=== PATIENT | male | born 1980 | race Caucasian/White ===

== ENCOUNTER 2018-04-25 13:11 | Emergency (ER) | payer BC ==
[~2018-04-25] VITALS: Ht 180.3 cm; Wt 101.6 kg
[~2018-04-25 13:11] MED LIST: AZIT250 PO; CEPH500 PO; CLIN300 PO; CODACE30 PO; CYCL10 PO; DIAZ5 PO; DIPH25 PO; HYDACE25S PR; HYDACE5 PO; IBUP200; IBUP600 PO; IBUP800 PO; LEVFLO500 PO; MECL25 PO; MELO7.5 PO; NAPR500 PO; OXYACE5T PO; OXYACE7.5T PO; PROACE100 PO; RXHYDACE PO; RXNAPNA550 PO; RXOXYACE PO; RXPRED10 PO; ZOLP5; Zofran Odt4 MG SL
== END 2018-04-25 14:10 | disposition home or self-care (01) ==
LOC: ER 13:11
DX: S01.81XA Laceration without foreign body of other part of head, initial encounter (principal); Z88.0 Allergy status to penicillin; Z88.1 Allergy status to other antibiotic agents; W22.8XXA Striking against or struck by other objects, initial encounter
CPT/HCPCS: 12014; 99283-25

== ENCOUNTER 2019-11-17 20:57 | Emergency (ER) | payer SELFPAY ==
[~2019-11-17] VITALS: Ht 180.3 cm; Wt 106.1 kg
== END 2019-11-17 21:47 | disposition left against medical advice (07) ==
LOC: ER 20:57
DX: Z53.21 Procedure and treatment not carried out due to patient leaving prior to being seen by health care provider (principal)

== ENCOUNTER 2019-12-27 20:45 | Emergency (ER) | payer SELFPAY ==
[~2019-12-27] VITALS: Ht 180.3 cm; Wt 108.9 kg
== END 2019-12-27 21:03 | disposition home or self-care (01) ==
LOC: ER 20:45
DX: J32.9 Chronic sinusitis, unspecified (principal); Z88.0 Allergy status to penicillin
CPT/HCPCS: 99282

== ENCOUNTER 2021-02-01 13:04 | Emergency (ER) | payer BC ==
[~2021-02-01] VITALS: Ht 180.3 cm; Wt 107.0 kg
[~2021-02-01 13:04] MED LIST changes: -DEXA4 PO
[2021-02-01 13:54] LABS: BASOPHILS ABSOLUTE AUTO 0.08 K/mm3 (0.00-0.23); BASOPHILS PERCENT AUTO 1 % (0-2); EOSINOPHILS ABSOLUTE AUTO 0.13 K/mm3 (0.00-0.68); EOSINOPHILS PERCENT AUTO 2 % (0-6); Hematocrit 46.3 % (37.0-53.0); Hemoglobin 15.9 g/dL (13.5-17.5); IMMATURE GRAN ABSOLUTE AUTO 0.03 K/mm3 (0.00-0.10); IMMATURE GRAN PERCENT AUTO 1 % (0-1); LYMPHOCYTES PERCENT AUTO 24 % (21-46); MONOCYTES ABSOLUTE AUTO 0.65 K/mm3 (0.16-1.47); MONOCYTES PERCENT AUTO 11 % (4-13); Mean Corpuscular HGB 28.7 pg (26.0-34.0); Mean Corpuscular HGB Conc 34.3 g/dL (31.5-36.5); Mean Corpuscular Volume 84 fL (80-100); NEUTROPHILS ABSOLUTE AUTO 3.54 K/mm3 (1.96-9.15); NEUTROPHILS PERCENT AUTO 61 % (41-73); NRBC ABSOLUTE 0.02 K/mm3 (0.00-0.02); NRBC Auto 0.3 /100 WBC (0.0-0.2); RDW Coefficient Variation 12.2 % (11.7-14.2); RDW Standard Deviation 37.2 fL (35.1-46.3); Red Blood Cell Count 5.54 M/mm3 (4.30-5.90); White Blood Cell Count 5.83 K/mm3 (4.00-11.30)
[2021-02-01 14:02] LABS: Platelet Count 1 K/mm3 (150-400)
[2021-02-01 14:07] LABS: International Normalized Ratio 0.96; Prothrombin Time Results 10.3 Sec (9.7-11.5)
[2021-02-01 14:19] LABS: Alanine Aminotransfer (ALT/SGP 59 U/L (12-78); Albumin, Blood 3.5 g/dL (3.4-5.0); Albumin/Globulin Ratio 0.9 (0.8-1.8); Alk Phos 104 U/L (50-136); Anion Gap 4 mmol/L (6-16); Aspartate Aminotrans (AST/SGOT 31 U/L (12-37); Bilirubin, Total 0.5 mg/dL (0.1-1.0); Blood Urea Nitrogen 15 mg/dL (8-24); Bun/Creatinine Ratio 15.6 (12.0-20.0); CO2, Blood 27 mmol/L (21-32); Calcium, Blood 8.6 mg/dL (8.5-10.1); Chloride, Blood 110 mmol/L (98-108); Creatinine, Blood 0.96 mg/dL (0.60-1.20); Globulin, Blood 3.9 g/dL (2.2-4.0); Glomerular Filtration Rate >60 (60-); Glucose, Blood 87 mg/dL (70-99); Potassium, Blood 3.9 mmol/L (3.5-5.5); Sodium, Blood 141 mmol/L (136-145); Total Protein, Blood 7.4 g/dL (6.4-8.2)
[2021-02-01 16:18] LABS: Hematocrit 43.5 % (37.0-53.0); Hemoglobin 14.8 g/dL (13.5-17.5); Mean Corpuscular HGB 28.8 pg (26.0-34.0); Mean Corpuscular Volume 85 fL (80-100); Mean Platelet Volume 9.9 fL (9.1-12.4); RDW Coefficient Variation 12.3 % (11.7-14.2); RDW Standard Deviation 37.7 fL (35.1-46.3); Red Blood Cell Count 5.13 M/mm3 (4.30-5.90); White Blood Cell Count 6.56 K/mm3 (4.00-11.30)
[2021-02-01 16:39] LABS: Platelet Count 18 K/mm3 (150-400)
[2021-02-01 17:26] LABS: BAND PERCENT MAN 1 % (0-8); BASOPHILS PERCENT MAN 0 % (0-2); EOSINOPHILS PERCENT MAN 0 % (0-6); LYMPHOCYTES ABSOLUTE MAN 1.18 K/mm3 (0.84-5.20); LYMPHOCYTES PERCENT MAN 18 % (21-46); MONOCYTES ABSOLUTE MAN 0.26 K/mm3 (0.16-1.47); MONOCYTES PERCENT MAN 4 % (4-13); NEUTROPHILS ABSOLUTE MAN 5.11 K/mm3 (1.96-9.15); SEG NEUTROPHILS PERCENT MAN 77 % (41-73); TOTAL CELLS COUNTED 100
[2021-02-01] MEDS ORDERED: DEXA4 PO (17:31)
== END 2021-02-01 17:02 | disposition home or self-care (01) ==
LOC: ER 13:04
PROVIDERS: Emergency Medicine
DX: D69.6 Thrombocytopenia, unspecified (principal); Z88.0 Allergy status to penicillin; Z88.1 Allergy status to other antibiotic agents
CPT/HCPCS: 36415; 36430; 80053; 85007; 85025; 85027; 85610; 86900; 86901; 96374; 99283-25; J1100; P9035

== ENCOUNTER → 2021-02-01 | Outpatient (CLI) | payer BC ==
[~2021-02-01] MED LIST changes: +DEXA4 PO
[2021-02-01 11:50] LABS: BASOPHILS ABSOLUTE AUTO 0.06 K/mm3 (0.00-0.23); BASOPHILS PERCENT AUTO 1 % (0-2); EOSINOPHILS ABSOLUTE AUTO 0.11 K/mm3 (0.00-0.68); EOSINOPHILS PERCENT AUTO 2 % (0-6); Hematocrit 49.1 % (37.0-53.0); Hemoglobin 16.3 g/dL (13.5-17.5); IMMATURE GRAN ABSOLUTE AUTO 0.02 K/mm3 (0.00-0.10); IMMATURE GRAN PERCENT AUTO 0 % (0-1); LYMPHOCYTES ABSOLUTE AUTO 1.31 K/mm3 (0.84-5.20); LYMPHOCYTES PERCENT AUTO 24 % (21-46); MONOCYTES ABSOLUTE AUTO 0.65 K/mm3 (0.16-1.47); MONOCYTES PERCENT AUTO 12 % (4-13); Mean Corpuscular HGB 28.2 pg (26.0-34.0); Mean Corpuscular HGB Conc 33.2 g/dL (31.5-36.5); Mean Corpuscular Volume 85 fL (80-100); NEUTROPHILS ABSOLUTE AUTO 3.35 K/mm3 (1.96-9.15); NEUTROPHILS PERCENT AUTO 61 % (41-73); RDW Coefficient Variation 12.2 % (11.7-14.2); RDW Standard Deviation 37.5 fL (35.1-46.3); Red Blood Cell Count 5.79 M/mm3 (4.30-5.90)
[2021-02-01 12:06] LABS: Alanine Aminotransfer (ALT/SGP 60 U/L (12-78); Albumin, Blood 3.7 g/dL (3.4-5.0); Albumin/Globulin Ratio 0.9 (0.8-1.8); Alk Phos 109 U/L (50-136); Anion Gap 2 mmol/L (6-16); Aspartate Aminotrans (AST/SGOT 29 U/L (12-37); Bilirubin, Total 0.6 mg/dL (0.1-1.0); Blood Urea Nitrogen 15 mg/dL (8-24); Bun/Creatinine Ratio 15.8 (12.0-20.0); CO2, Blood 30 mmol/L (21-32); Calcium, Blood 8.7 mg/dL (8.5-10.1); Chloride, Blood 108 mmol/L (98-108); Creatinine, Blood 0.95 mg/dL (0.60-1.20); Glomerular Filtration Rate >60 (60-); Glucose, Blood 89 mg/dL (70-99); Potassium, Blood 4.9 mmol/L (3.5-5.5); Sodium, Blood 140 mmol/L (136-145); Total Protein, Blood 7.7 g/dL (6.4-8.2)
[2021-02-01 12:32] LABS: Platelet Count 1 K/mm3 (150-400)
== END ==
LOC: LAB 10:50 → LAB SHORT 10:50
PROVIDERS: Physician Assistant
DX: R53.83 Other fatigue (principal); R21 Rash and other nonspecific skin eruption
CPT/HCPCS: 80053; 85025; 85651

== ENCOUNTER 2025-04-20 10:22 | Emergency (ER) | payer BC ==
[~2025-04-20] VITALS: Ht 177.8 cm; Wt 111.1 kg
[~2025-04-20 10:22] MED LIST changes: +DEXA4 PO
[2025-04-20] MEDS ORDERED: DIAZEPAM5 M2 PO (10:35)
[2025-04-20] MEDS ORDERED: ONDANSETRON ODT16 MG PO (10:35)
[2025-04-20] MEDS ORDERED: NS 1,000 ML IV SCH (10:35)
[2025-04-20] MEDS ORDERED: OXYC5 PO (10:35)
[2025-04-20] MEDS ORDERED: SULFAMETHOXAZO1 EAC1 PO (10:35)
[2025-04-20] MEDS ORDERED: Ondansetron HCl 2 MG / ML 2ML Vial IV ONE (10:35)
[2025-04-20 11:00] LABS: BASOPHILS PERCENT AUTO 1 % (0-2); EOSINOPHILS PERCENT AUTO 3 % (0-6); Hematocrit 41.2 % (37.0-53.0); Hemoglobin 13.5 g/dL (13.5-17.5); IMMATURE GRAN PERCENT AUTO 1 % (0-1); LYMPHOCYTES ABSOLUTE AUTO 1.61 K/mm3 (0.84-5.20); LYMPHOCYTES PERCENT AUTO 22 % (21-46); MONOCYTES ABSOLUTE AUTO 0.81 K/mm3 (0.16-1.47); MONOCYTES PERCENT AUTO 11 % (4-13); Mean Corpuscular HGB 28.3 pg (26.0-34.0); Mean Corpuscular HGB Conc 32.8 g/dL (31.5-36.5); Mean Corpuscular Volume 86 fL (80-100); Mean Platelet Volume 9.6 fL (9.1-12.4); NEUTROPHILS PERCENT AUTO 61 % (41-73); Platelet Count 268 K/mm3 (150-400); RDW Coefficient Variation 12.8 % (11.7-14.2); RDW Standard Deviation 40.2 fL (35.1-46.3); Red Blood Cell Count 4.77 M/mm3 (4.30-5.90); White Blood Cell Count 7.22 K/mm3 (4.00-11.30)
[2025-04-20 11:28] LABS: Albumin, Blood 3.4 g/dL (3.4-5.0); Albumin/Globulin Ratio 0.9 (0.8-1.8); Bilirubin, Total 0.3 mg/dL (0.1-1.0); Bun/Creatinine Ratio 9.2 (12.0-20.0); Calcium, Blood 8.4 mg/dL (8.5-10.1); Creatinine, Blood 1.09 mg/dL (0.60-1.20); Globulin, Blood 3.6 g/dL (2.2-4.0); Potassium, Blood 4.7 mmol/L (3.5-5.5)
[2025-04-20] MEDS ORDERED: ONDA4ODT MM (12:25)
[2025-04-20] MEDS ORDERED: OMEP20ER PO (12:25)
[2025-04-20 12:30] VITALS: BP 125/82
== END 2025-04-20 12:37 | disposition home or self-care (01) ==
LOC: ER 10:22
PROVIDERS: Emergency Medicine
DX: R11.2 Nausea with vomiting, unspecified (principal); Z88.0 Allergy status to penicillin; Z88.1 Allergy status to other antibiotic agents; Z79.899 Other long term (current) drug therapy
CPT/HCPCS: 80053; 85025; 96361; 96374; 99283-25; J2405; J7030